=== PATIENT | female | born 1935 | race Caucasian/White ===

== ENCOUNTER 2016-11-16 18:18 | Observation (INO) | payer OTHER ==
--- NOTE | 2016-11-16 18:35 | EDPHY ---
H & P Stated Complaint: syncope Time Seen by Provider: 11/16/16 18:35 HPI/ROS: CHIEF COMPLAINT: Syncope HISTORY OF PRESENT ILLNESS: The patient presents to the ED after an episode of syncope. The patient reportedly has had symptoms of presyncope over the past 2 days. Her primary symptom is lightheadedness. The patient reportedly had a flu -like illness 4-5 days ago with associated mild abdominal pain, poor appetite and slight headache. The symptoms did resolve yesterday. The patient denies any pleuritic chest pain, exertional chest pain or asymmetric calf pain or swelling. She has had mild dyspnea for the past month. The patient does have a history of Graves disease which has been well controlled. The patient denies any fever, cough or congestion. The patient's symptoms are moderate in nature and worsened with movement. She has no prior history of arrhythmia. REVIEW OF SYSTEMS: A comprehensive 10 point review of systems is otherwise negative aside from elements mentioned in the history of present illness. Source: Patient Exam Limitations: No limitations - Personal History Current Tetanus/Diphtheria Vaccine: Unsure Current Tetanus Diphtheria and Acellular Pertussis (TDAP): Unsure - Medical/Surgical History Hx Asthma: No Hx Chronic Respiratory Disease: No Hx Diabetes: No Hx Cardiac Disease: No Hx Renal Disease: No Hx Cirrhosis: No Hx Alcoholism: No Hx HIV/AIDS: No Hx Splenectomy or Spleen Trauma: No Other PMH: graves disease - Social History Smoking Status: Never smoked - Physical Exam Exam: General Appearance: Alert, no distress Eyes: Pupils equal and round no pallor or injection ENT, Mouth: Mucous membranes moist Respiratory: There are no retractions, lungs are clear to auscultation Cardiovascular: Tachycardic, irregular, rate 120, 2/6 systolic ejection murmur Gastrointestinal: Abdomen is soft and nontender, no masses, bowel sounds normal Neurological: A&O, normal motor function, normal sensory exam, normal cranial nerves Skin: Warm and dry, no rashes Musculoskeletal: Neck is supple nontender Extremities: symmetrical, full range of motion Constitutional: Initial Vital Signs Temperature (C) 36.5 C 11/16/16 18:22 Heart Rate 124 H 11/16/16 18:22 Respiratory Rate 16 11/16/16 18:22 Blood Pressure 150/109 H 11/16/16 18:22 O2 Sat (%) 97 11/16/16 18:22 O2 Delivery Mode Room Air Allergies/Adverse Reactions: No Known Allergies Allergy (Unverified 11/16/16 18:24) Home Medications: Medication Instructions Recorded Methimazole [Methimazole] 2.5 mg PO DAILY 11/16/16 PROPRANOLOL HCL [PROPRANOLOL HCL] 40 mg PO DAILY PRN 11/16/16 Zolpidem Tartrate [Ambien 5MG (*)] 5 mg PO HS PRN 11/16/16 Medical Decision Making - Diagnostics EKG Interpretation: EKG: Complete interpretation has been separately recorded in the [facility] archive. Summary impression: Atrial fibrillation with rapid ventricular response, rate 128, nonspecific ST T wave changes noted Imaging Results: Imaging Impressions Chest/Thorax CTA 11/16/16 19:19 Impression: 1. No evidence of pulmonary embolic disease. 2. The nodular goiter. 3. See above report for additional findings. Results called and discussed with Manav Suh M.D. on 11/16/2016 at 20:26 ED Course/Re-evaluation: The patient presents to the ED with atrial fibrillation with rapid ventricular response. The patient has had some symptoms of dyspnea over the past several weeks. Additionally she had some flu-like symptoms. The patient was noted to have an elevated D-dimer of 1.26. The patient was taken for a stat CT angiogram of her chest which fortunately demonstrates no evidence of pulmonary embolism or pneumonia. The patient has a known multinodular goiter. The patient has been started on IV diltiazem bolus as well as an IV diltiazem drip. The patient is noted to have fairly significant hyperthyroidism in the emergency department. She has no clinical evidence of a thyroid storm a thyrotoxicosis. The patient was re-evaluated by myself at 10:30 p.m.. Her heart rate is now rate controlled at 90. Her blood pressure is normal. She continues to be in atrial fibrillation. Differential Diagnosis: Differential diagnosis considered includes atrial fibrillation with rapid ventricular response, thyrotoxicosis, pulmonary embolism, pneumonia, metabolic abnormality, myocardial infarction, heart failure Critical Care Time: Critical care time exclusive of procedures and exclusive of the PA's time was 35 minutes, performed by myself, Manav Suh MD. The patient presents to the emergency department with atrial fibrillation with rapid ventricular response an episode of syncope. The patient is noted to have hyperthyroidism. The patient was started on a diltiazem drip. The patient will require admission to a monitored bed this evening. - Data Points Laboratory Results: Laboratory Results 11/16/16 18:46 11/16/16 18:46 11/16/16 11/16/16 11/16/16 18:46 18:46 18:46 WBC RBC Hgb Hct MCV MCH MCHC RDW Plt Count MPV Neut % (Auto) Lymph % (Auto) [place] % (Auto) Eos % (Auto) Baso % (Auto) Nucleat RBC Rel Count Absolute Neuts (auto) Absolute Lymphs (auto) Absolute Monos (auto) Absolute Eos (auto) Absolute Basos (auto) Absolute Nucleated RBC Immature Gran % Seg Neutrophils % Lymphocytes % Monocytes % Eosinophils % Immature Gran # Absolute Seg Neuts Absolute Lymphocytes Absolute Monocytes Absolute Eosinophils RBC/WBC/PLT Morphology Atypical Lymphocytes Platelet Estimate Large Platelets D-Dimer 1.37 ug/mLFEU H ug/mLFEU (0.00-0.50) Sodium 138 mEq/L mEq/L (134-144) Potassium 3.5 mEq/L mEq/L (3.5-5.2) Chloride 105 mEq/L mEq/L (97-110) Carbon Dioxide 21 mEq/l L mEq/l (22-31) Anion Gap 12 mEq/L mEq/L (8-16) BUN 17 mg/dL mg/dL (7-23) Creatinine 0.7 mg/dL mg/dL (0.6-1.0) Estimated GFR > 60 Glucose 137 mg/dL H mg/dL (70-100) Calcium 9.8 mg/dL mg/dL (8.5-10.4) Troponin I Cancelled 0.018 ng/mL ng/mL (0-0.034) NT-Pro-B Natriuret Pep 1940 pg/mL H pg/mL Cancelled (0-450) TSH < 0.015 uIU/mL L uIU/mL (0.465-4.680) Free T3 8.58 pg/mL H pg/mL (2.77-5.27) Total T3 7.090 ng/mL H ng/mL (0.970-1.690) 11/16/16 18:46 WBC 5.47 10^3/uL 10^3/uL (3.80-9.50) RBC 3.89 10^6/uL L 10^6/uL (4.18-5.33) Hgb 11.8 g/dL L g/dL (12.6-16.3) Hct 35.5 % L % (38.0-47.0) MCV 91.3 fL fL (81.5-99.8) MCH 30.3 pg pg (27.9-34.1) MCHC 33.2 g/dL g/dL (32.4-36.7) RDW 12.2 % % (11.5-15.2) Plt Count 202 10^3/uL 10^3/uL (150-400) MPV 10.8 fL fL (8.7-11.7) Neut % (Auto) Not Reported Lymph % (Auto) Not Reported [place] % (Auto) Not Reported Eos % (Auto) Not Reported Baso % (Auto) Not Reported Nucleat RBC Rel Count 0.0 % % (0.0-0.2) Absolute Neuts (auto) Not Reported Absolute Lymphs (auto) Not Reported Absolute Monos (auto) Not Reported Absolute Eos (auto) Not Reported Absolute Basos (auto) Not Reported Absolute Nucleated RBC 0.00 10^3/uL 10^3/uL (0-0.01) Immature Gran % Not Reported Seg Neutrophils % 31 % % Lymphocytes % 50 % % Monocytes % 18 % % Eosinophils % 1 % % Immature Gran # Not Reported Absolute Seg Neuts 1.70 10^/uL 10^/uL (1.70-6.50) Absolute Lymphocytes 2.74 10^3/uL 10^3/uL (1.00-3.00) Absolute Monocytes 0.98 10^3/uL H 10^3/uL (0.30-0.80) Absolute Eosinophils 0.05 10^3/uL 10^3/uL (0.03-0.40) RBC/WBC/PLT Morphology NORMAL (NORMAL) Atypical Lymphocytes 1+ H Platelet Estimate ADEQUATE (ADEQ) Large Platelets PRESENT H D-Dimer Sodium Potassium Chloride Carbon Dioxide Anion Gap BUN Creatinine Estimated GFR Glucose Calcium Troponin I NT-Pro-B Natriuret Pep TSH Free T3 Total T3 Medications Given: Discontinued Medications Diltiazem HCl (Cardizem 25 Mg/5 Ml Vial) 10 mg IVP EDNOW ONE Stop: 11/16/16 20:34 Last Admin: 11/16/16 21:03 Dose: 10 mg Sodium Chloride (Ns) 1,000 mls @ 0 mls/hr IV ONCE ONE PRN Reason: Wide Open Stop: 11/16/16 18:37 Last Admin: 11/16/16 18:45 Dose: 1,000 mls Diltiazem HCl 125 mg/ Dextrose 125 mls @ 0 mls/hr IV EDNOW ONE; Titrate PRN Reason: Protocol Stop: 11/16/16 20:34 Last Admin: 11/16/16 21:03 Dose: 125 mls Departure - Departure Disposition: [facility] Acute Clinical Impression: Atrial fibrillation, Goiter with hyperthyroidism, Syncope Condition: Fair
[2016-11-16] MEDS ORDERED: NS 1,000 ML IV ONE (18:36)
[2016-11-16 18:59] LABS: ADD DIFF? YES; ADD MORPH? NO; ADD SCAN? NO; ATYPICAL LYMPHOCYTE FLAG 70 (0-99); FRAGMENT RBC FLAG 0 (0-99); HEMATOCRIT 35.5 % (38.0-47.0); HEMOGLOBIN 11.8 g/dL (12.6-16.3); LEFT SHIFT FLG 0 (0-99); LIPEMIA HEMOLYSIS FLAG 80 (0-99); MEAN CELL HEMOGLOBIN 30.3 pg (27.9-34.1); MEAN CELL HEMOGLOBIN CONCENTR. 33.2 g/dL (32.4-36.7); MEAN CELL VOLUME 91.3 fL (81.5-99.8); MEAN PLATELET VOLUME 10.8 fL (8.7-11.7); PLATELET CLUMPS FLAG 0 (0-99); PLATELET COUNT 202 10^3/uL (150-400); RED BLOOD CELL COUNT 3.89 10^6/uL (4.18-5.33); RED CELL DISTRIBUTION WIDTH 12.2 % (11.5-15.2)
[2016-11-16 19:08] LABS: ANION GAP 12 mEq/L (8-16); CARBON DIOXIDE 21 mEq/l (22-31); CHLORIDE 105 mEq/L (97-110); POTASSIUM 3.5 mEq/L (3.5-5.2); SODIUM 138 mEq/L (134-144)
[2016-11-16 19:09] LABS: CALCIUM 9.8 mg/dL (8.5-10.4); CREATININE 0.7 mg/dL (0.6-1.0); GLOMERULAR FILTRATION RATE > 60; GLUCOSE 137 mg/dL (70-100)
--- NOTE | 2016-11-16 19:10 | CPEKG ---
Heart Rate: 128 RR Interval: 469 QRSD Interval: 78 QT Interval: 308 QTC Interval: 450 QRS [place]: 9 T Wave [place]: 52 EKG Severity - ABNORMAL ECG - EKG Impression: ATRIAL FIBRILLATION, V-RATE 92-172 EKG Impression: CONSIDER POSTERIOR INFARCT EKG Impression: ST DEPRESSION, PROBABLY RATE RELATED Electronically Signed By: Philip Newman 16-Nov-2016 20:16:29
[2016-11-16 19:20] LABS: TROPONIN I 0.018 ng/mL (0-0.034)
[2016-11-16] MEDS ORDERED: IOPAMIDOL (ISOVUE 370) 100 ML BTL IV ONE (19:27)
[2016-11-16 19:41] LABS: LARGE PLATELETS PRESENT; PLATELET ESTIMATE ADEQUATE (ADEQ)
[2016-11-16] MEDS ORDERED: DILTIAZEM 125 MG in D5W 125 ML IV ONE (20:33)
[2016-11-16] MEDS ORDERED: DILTIAZEM 25 MG/5 ML VIAL IVP ONE ×2 (20:33→20:38)
[2016-11-16 22:56] LABS: ALBUMIN 4.2 g/dL (3.5-5.0); BILIRUBIN,TOTAL 0.6 mg/dL (0.1-1.4); BILIRUBIN-CONJUGATED 0.4 mg/dL (0.0-0.5); BILIRUBIN-UNCONJUGATED 0.2 mg/dL (0.0-1.1); TOTAL PROTEIN 7.9 g/dL (6.3-8.2)
[2016-11-16] MEDS ORDERED: ACETAMINOPHEN 325 MG TAB PO PRN (22:56)
[2016-11-16] MEDS ORDERED: ONDANSETRON DISINTEGRATING 4 MG TAB PO PRN (22:56)
[2016-11-16] MEDS ORDERED: ONDANSETRON 4 MG/2 ML VIAL IVP PRN (22:56)
--- NOTE | 2016-11-16 23:42 | PDGENHP ---
History and Physical - Chief Complaint dizziness, syncope - History of Present Illness Patient is an 81 year old female with Graves disease, currently on methimazole, and essential tremor who presents to the ED with complaint of dizziness and a syncopal episode. Patient states this morning she felt in her usual state of health, performed all of her he normal activities including long walk without any symptoms. This evening when she was sitting on her chair in her living room she felt a sudden onset episode of lightheadedness and dizziness. She did not feel any associated chest pain, palpitations or shortness of breath, and this episode of dizziness resolved after less than a minute. This occurred again several minutes later and then patient had what she thinks was a syncopal episode, which was unwitnessed, unclear how long her LOC was, but when she awoke she had full recognition of where she was and what had happened. She then called her daughter to describe the symptoms and her daughter came to her home and brought her to the ED for further evaluation. Of note, patient does report about 4 days ago she had flu-like symptoms with nasal congestion, sneezing, fever and decreased oral intake. These symptoms lasted about a day and by yesterday she felt entirely at her baseline. She also reports that she was diagnosed with Graves disease about 1 year ago, but over the past 3-4 months her dose of methimazole has been decreased twice, now at 2.5 mg daily due to hypothyroid symptoms. On arrival to the ED, patient was afebrile, with stable BP, but elevated heart rate. EKG shows atrial fibrillation with rapid ventricular response, without obvious ischemia. Initial labs, revealed normal CBC, BMP, but TSH was markedly low, free T3/free T4 were both elevated. Initial troponin was negative, but BNP was also elevated. CXR did not show any acute pathology. D-dimer was checked and was elevated, so CT angio of the chest was obtained. CT was negative for pulmonary embolism. She was initiated on a diltiazem drip and admitted for further management. Of note, over her ED course while on the diltiazem drip, patient developed a 3- 4 second pause, with sinus keyon cardia to the 30-40bpm range. During this episode, patient reports that she felt the same dizziness/symptoms that she experienced at home earlier in the day. History Information - Allergies/Home Medication List Allergies/Adverse Reactions: No Known Allergies Allergy (Unverified 11/16/16 18:24) Home Medications: Methimazole [Methimazole] 2.5 mg PO DAILY 11/16/16 [Last Taken 11/16/16] PROPRANOLOL HCL [PROPRANOLOL HCL] 40 mg PO DAILY PRN 11/16/16 [Last Taken ] Zolpidem Tartrate [Ambien 5MG (*)] 5 mg PO HS PRN 11/16/16 [Last Taken Unknown] I have personally reviewed and updated: family history, medical history, social history, surgical history - Past Medical History Additional medical history: Graves disease. Essential Tremor - Surgical History Additional surgical history: . tonsillectomy - Family History Additional family history: Mother: required pacemaker - Social History Smoking Status: Never smoked Alcohol Use: Rarely Drug Use: None Additional social history: Patient lives alone, is fully independent in ADLs, walks 3-4 miles regularly. Review of Systems ROS: 10pt was reviewed & negative except for what was stated in HPI & below Physical Exam Temp Pulse Resp BP Pulse Ox 36.4 C 83 16 145/69 H 93 11/16/16 22:00 11/16/16 22:00 11/16/16 22:00 11/16/16 22:00 11/16/16 22:00 Constitutional: no apparent distress, appears nourished, not in pain Eyes: PERRL, anicteric sclera, EOMI Ears, Nose, Mouth, Throat: moist mucous membranes, hearing normal, ears appear normal, no oral mucosal ulcers, other (nodular thyroid enlargement) Cardiovascular: no murmur, rub, or gallop, irregularly irregular, pulses symmetric bilaterally, No JVD, No edema Peripheral Pulses: 2+: dorsalis-pedis (R), dorsalis-pedis (L) Respiratory: no respiratory distress, no rales or rhonchi, clear to auscultation Gastrointestinal: normoactive bowel sounds, soft, non-tender abdomen, no palpable masses, No guarding, No rebound Genitourinary: no bladder fullness, no bladder tenderness Skin: warm, normal color, no rashes or abrasions, no fluctuance, no induration, No mottled Musculoskeletal: full muscle strength, no muscle tenderness, normal joint ROM, no joint effusions Neurologic: AAOx3, sensation intact bilaterally, CN II-XII Intact, No weakness, No numbness, No facial droop Psychiatric: interacting appropriately, not anxious, not encephalopathic, thought process linear Lab Data & Imaging Review 11/16/16 18:46 11/16/16 18:46 WBC 5.47 10^3/uL (3.80-9.50) 11/16/16 18:46 RBC 3.89 10^6/uL (4.18-5.33) L 11/16/16 18:46 Hgb 11.8 g/dL (12.6-16.3) L 11/16/16 18:46 Hct 35.5 % (38.0-47.0) L 11/16/16 18:46 MCV 91.3 fL (81.5-99.8) 11/16/16 18:46 MCH 30.3 pg (27.9-34.1) 11/16/16 18:46 MCHC 33.2 g/dL (32.4-36.7) 11/16/16 18:46 RDW 12.2 % (11.5-15.2) 11/16/16 18:46 Plt Count 202 10^3/uL (150-400) 11/16/16 18:46 MPV 10.8 fL (8.7-11.7) 11/16/16 18:46 Neut % (Auto) Not Reported 11/16/16 18:46 Lymph % (Auto) Not Reported 11/16/16 18:46 [place] % (Auto) Not Reported 11/16/16 18:46 Eos % (Auto) Not Reported 11/16/16 18:46 Baso % (Auto) Not Reported 11/16/16 18:46 Nucleat RBC Rel Count 0.0 % (0.0-0.2) 11/16/16 18:46 Absolute Neuts (auto) Not Reported 11/16/16 18:46 Absolute Lymphs (auto) Not Reported 11/16/16 18:46 Absolute Monos (auto) Not Reported 11/16/16 18:46 Absolute Eos (auto) Not Reported 11/16/16 18:46 Absolute Basos (auto) Not Reported 11/16/16 18:46 Absolute Nucleated RBC 0.00 10^3/uL (0-0.01) 11/16/16 18:46 Immature Gran % Not Reported 11/16/16 18:46 Seg Neutrophils % 31 % 11/16/16 18:46 Lymphocytes % 50 % 11/16/16 18:46 Monocytes % 18 % 11/16/16 18:46 Eosinophils % 1 % 11/16/16 18:46 Immature Gran # Not Reported 11/16/16 18:46 Absolute Seg Neuts 1.70 10^/uL (1.70-6.50) 11/16/16 18:46 Absolute Lymphocytes 2.74 10^3/uL (1.00-3.00) 11/16/16 18:46 Absolute Monocytes 0.98 10^3/uL (0.30-0.80) H 11/16/16 18:46 Absolute Eosinophils 0.05 10^3/uL (0.03-0.40) 11/16/16 18:46 RBC/WBC/PLT Morphology NORMAL (NORMAL) 11/16/16 18:46 Atypical Lymphocytes 1+ H 11/16/16 18:46 Platelet Estimate ADEQUATE (ADEQ) 11/16/16 18:46 Large Platelets PRESENT H 11/16/16 18:46 D-Dimer 1.37 ug/mLFEU (0.00-0.50) H 11/16/16 18:46 Sodium 138 mEq/L (134-144) 11/16/16 18:46 Potassium 3.5 mEq/L (3.5-5.2) 11/16/16 18:46 Chloride 105 mEq/L (97-110) 11/16/16 18:46 Carbon Dioxide 21 mEq/l (22-31) L 11/16/16 18:46 Anion Gap 12 mEq/L (8-16) 11/16/16 18:46 BUN 17 mg/dL (7-23) 11/16/16 18:46 Creatinine 0.7 mg/dL (0.6-1.0) 11/16/16 18:46 Estimated GFR > 60 11/16/16 18:46 Glucose 137 mg/dL (70-100) H 11/16/16 18:46 Calcium 9.8 mg/dL (8.5-10.4) 11/16/16 18:46 Total Bilirubin 0.6 mg/dL (0.1-1.4) 11/16/16 18:46 Conjugated Bilirubin 0.4 mg/dL (0.0-0.5) 11/16/16 18:46 Unconjugated Bilirubin 0.2 mg/dL (0.0-1.1) 11/16/16 18:46 AST 27 IU/L (14-46) 11/16/16 18:46 ALT 27 IU/L (9-52) 11/16/16 18:46 Alkaline Phosphatase 82 IU/L (38-126) 11/16/16 18:46 Troponin I 0.018 ng/mL (0-0.034) 11/16/16 18:46 NT-Pro-B Natriuret Pep 1940 pg/mL (0-450) H 11/16/16 18:46 Total Protein 7.9 g/dL (6.3-8.2) 11/16/16 18:46 Albumin 4.2 g/dL (3.5-5.0) 11/16/16 18:46 TSH < 0.015 uIU/mL (0.465-4.680) L 11/16/16 18:46 Free T4 2.43 ng/dL (0.59-2.19) H 11/16/16 18:46 Free T3 8.58 pg/mL (2.77-5.27) H 11/16/16 18:46 Total T3 7.090 ng/mL (0.970-1.690) H 11/16/16 18:46 Visualized and Interpreted imaging results: Yes Interpretation: CT chest: no pulmonary embolism, no pulmonary pathology; multinodular goiter Visualized and Interpreted EKG results: Yes EKG additional interpertation: Afib, no obvious st/t wave changes Assessment & Plan Assessment: Patient is an 81 year old female with known Graves disease, essential tremor who presents to the ED with complaint of episodic dizziness and a syncopal event today. ED evaluation revealed afib with rvr, as well as hyperthyroid state. Plan: # syncope Patient describes an episode of dizziness, which was shortly followed by a syncopal event. Syncope was unwitnessed, so details of LOC are not known, but patient did not fall out of her chair, there was no post-ictal confusion or incontinence. On arrival to the ED, HR was noted to be tachycardic in afib, but then patient also had an episode of bradycardia with a 3 second pause. Syncope appears likely related to arrhythmia. Will continue telemetry monitoring, check TTE, r/o ACS. # atrial fibrillation Patient denies previous history of afib. Her hypothyroid state (low TSH, high free T3/T4) may have triggered the afib. PE has been ruled out with negative CT chest. Patient was initiated on diltiazem for rate control while tachycardic, and then patient developed episodes of short pauses and symptomatic bradycardia. Suspect bradycardia is related to the diltiazem plus home beta- holly (patient had taken her propranolol earlier in the day). Will discontinue diltiazem, monitor HR and dose propranolol if needed for rate control. Also discussed systemic anticoagulation with patient, given her age and sex, CHADSVASc score is 3 and she warrants AC. Will initiate eliquis. # Graves disease, hyperthyroidism Patient states for the past 3-4 months, she has required lower dosing of methimazole. However, on today, labs show she is slightly hyperthyroid. Will increase her home methimazole dose back to 5 mg daily, continue propranolol for symptom control as above. # dispo: admit to observation status for work up of new onset Afib # gen: NPO DVT ppx: will initiate eliquis Full code
--- NOTE | 2016-11-17 00:32 | CPEKG ---
Heart Rate: 63 RR Interval: 952 P-R Interval: 152 QRSD Interval: 86 QT Interval: 416 QTC Interval: 426 P [place]: 67 QRS [place]: 10 T Wave [place]: 40 EKG Severity - ABNORMAL ECG - EKG Impression: SINUS RHYTHM EKG Impression: PACs NOTED, ONE OF WHICH CONDUCTED WITH ABERRANCY EKG Impression: LATERAL INFARCT, OLD Electronically Signed By: Nic Nieto 18-Nov-2016 08:03:29
[2016-11-17 01:40] LABS: TROPONIN I 0.035 ng/mL (0-0.034)
[2016-11-17 06:07] LABS: ADD DIFF? YES; ADD MORPH? NO; ADD SCAN? NO; ATYPICAL LYMPHOCYTE FLAG 80 (0-99); FRAGMENT RBC FLAG 0 (0-99); HEMATOCRIT 30.2 % (38.0-47.0); HEMOGLOBIN 10.1 g/dL (12.6-16.3); LEFT SHIFT FLG 0 (0-99); LIPEMIA HEMOLYSIS FLAG 80 (0-99); MEAN CELL HEMOGLOBIN 30.8 pg (27.9-34.1); MEAN CELL HEMOGLOBIN CONCENTR. 33.4 g/dL (32.4-36.7); MEAN CELL VOLUME 92.1 fL (81.5-99.8); MEAN PLATELET VOLUME 10.7 fL (8.7-11.7); PLATELET CLUMPS FLAG 0 (0-99); PLATELET COUNT 170 10^3/uL (150-400); RED BLOOD CELL COUNT 3.28 10^6/uL (4.18-5.33); RED CELL DISTRIBUTION WIDTH 12.2 % (11.5-15.2)
[2016-11-17 06:17] LABS: INR 1.17 (0.83-1.16); PROTIME(PATIENT) 14.9 SEC (12.0-15.0)
[2016-11-17 06:18] LABS: APTT 33.8 SEC (23.0-38.0)
[2016-11-17 06:44] LABS: ANION GAP 11 mEq/L (8-16); CARBON DIOXIDE 23 mEq/l (22-31); CHLORIDE 110 mEq/L (97-110); CREATININE 0.6 mg/dL (0.6-1.0); GLOMERULAR FILTRATION RATE > 60; GLUCOSE 99 mg/dL (70-100); MAGNESIUM 2.1 mg/dL (1.6-2.3); POTASSIUM 3.1 mEq/L (3.5-5.2); SODIUM 144 mEq/L (134-144)
[2016-11-17 06:55] LABS: TROPONIN I 0.039 ng/mL (0-0.034)
[2016-11-17] MEDS ORDERED: PROTOCOL POTASSIUM 1 DOSE MISC PRN (06:58)
[2016-11-17] MEDS ORDERED: PROTOCOL MAGNESIUM 1 DOSE IV PRN (06:58)
[2016-11-17 07:02] LABS: PLATELET ESTIMATE ADEQUATE (ADEQ)
[2016-11-17] MEDS ORDERED: POTASSIUM CL 20 MEQ/15 ML UDCUP PO ONE (08:37)
[2016-11-17] MEDS ORDERED: METHIMAZOLE 5 MG TAB PO SCH (09:00)
[2016-11-17] MEDS ORDERED: PROPRANOLOL HCL 40 MG TAB PO SCH (09:00)
--- NOTE | 2016-11-17 10:00 | ECHO ---
[id number] + + [address] : : [place] [address] : : [phone] + + Adult Echocardiographic Report + -------+ :Name: BUDDY VALLEJO MStudy Date: 11/17/2016 09:00 AM : : Hospital Admission Number: [id number] Locat ion: ER: :: 1935 Gender: Female Height: 64 in : :Age: 81 yrs Race: WH Weight: 129 l b : :Reason For Study: Eval LV Fx : : BSA: 1.6 mete rs2 : :History: Syncope, new onset of Atrial fibrillation, now in : :sinus rhythm : + -------+ MMode/2D Measurements \T\ Calculations IVSd: 0.84 cm LVIDd: 4.5 cm FS: 47.9 % MV Diam: 3.2 cm LVPWd: 0.86 cm LVIDs: 2.3 cm EDV(Teich): 92.9 ml ESV(Teich): 19.1 ml EF(Teich): 79.4 % Ao root diam: 3.0 cm LVOT diam: 1.9 cm ACS: 1.5 cm LVOT area: 2.8 cm2 Normal Measurement Values: + + :LVIDd (3.5-5.7cm) IVSd (0.6-1.1cm) LVPWd (0.6-1.1cm) Aortic Root (2.0-3.7cm)Left Atrium (1.5-4.0cm): :LV Vol(d) (76-115ml) LV Vol(s) (29-48ml) Ejec Fraction (50-65%)PV Vimal (0.6- 1.2m/s) TV Vimal (0.4-1.0m/s) : :MV E Vimal (0.8-1.0m/s)MV A Vimal (0.3-1.0m/s)LVOT Vimal (0.7-1.2m/s) Asc Ao Vimal ( 0.9-1.8m/s) : + + Doppler Measurements \T\ Calculations MV E max vimal: MV V2 max: Ao V2 max: AI max vimal: 97.5 cm/sec 170.0 cm/sec 167.0 cm/sec 439.7 cm/sec MV A max vimal: MV max PG: Ao max PG: AI max P.1 cm/sec 11.6 mmHg 11.2 mmHg 77.4 mmHg MV E/A: 1.2 MV V2 mean: Ao mean PG: AI dec slope: 101.0 cm/sec 6.0 mmHg MV mean PG: Ao V2 mean: 253.0 cm/sec2 5.0 mmHg 114.0 cm/sec AI P1/2t: MV V2 VTI: 49.0 cm Ao V2 VTI: 36.6 cm509.0 msec MV area (1 diam): ABIGAIL(I,D): 2.5 cm2 8.0 cm2 ABIGAIL(V,D): 2.2 cm2 MVA(VTI): 1.9 cm2 MV Flow area (1diam): 8.0 cm2 LV V1 max: MR max vimal: MR(RF 1 diam): SV(MV 1 diam): 132.0 cm/sec 643.5 cm/sec 8.6 % 394.1 ml LV V1 max PG: MR max PG: SI(MV 1 diam): 7.0 mmHg 165.6 mmHg LV V1 mean P.7 ml/m2 4.0 mmHg SV(LVOT): 91.3 ml LV V1 mean: 88.0 cm/sec LV V1 VTI: 32.2 cm PA V2 max: TR max vimal: RF(MV,Ao)(1 diam): 103.0 cm/sec 335.0 cm/sec 0.34 PA max PG: TR max PG: RF(MV,LVOT) 4.2 mmHg 44.9 mmHg (1diam): 0.77 RAP systole: 5.0 mmHg RVSP(TR): 49.9 mmHg Left Ventricle The left ventricle is normal in size. There is normal left ventricular wall thickness. The left ventricular ejection fraction is normal. There is Doppler evidence for diastolic dysfunction. Ejection Fraction = 79%. The left ventricular wall motion is normal. Right Ventricle The right ventricle is normal in size and function. Atria The left atrium is mildly dilated. Right atrial size is normal. Mitral Valve The mitral valve is normal. There is no mitral valve stenosis. There is mild mitral regurgitation. Tricuspid Valve There is mild tricuspid regurgitation. Right ventricular systolic pressure is 50mmHg. There is Doppler evidence for mild to moderate pulmonary hypertension. Aortic Valve There is mild aortic valve calcification. There is no aortic stenosis. Mild to moderate aortic regurgitation. Pulmonic Valve The pulmonic valve is normal in structure and function. There is no pulmonic valvular regurgitation. Great Vessels The aortic root is normal size. Pericardium/Pleural There is no pericardial effusion. Conclusion A complete two-dimensional transthoracic echocardiogram was performed (2D, M-mode, Doppler and color flow Doppler). The left ventricular ejection fraction is normal. There is Doppler evidence for diastolic dysfunction. Ejection Fraction = 79%. The left ventricular wall motion is normal. The right ventricle is normal in size and function. The left atrium is mildly dilated. There is mild mitral regurgitation. There is mild tricuspid regurgitation. Right ventricular systolic pressure is 50mmHg. There is Doppler evidence for mild to moderate pulmonary hypertension. There is mild aortic valve calcification. Mild to moderate aortic regurgitation. There is no pericardial effusion. Final Reading Physician: Sherrie Slater signed on 11/17/2016 09:58 AM Ordering Physician: Daphne Mccracken Performed By: Tim Avila, SHERMANCS
[2016-11-17 11:30] VITALS: BP 135/71; PULSE 63; RESP 18; TEMP 97.9; O2SAT 92
--- NOTE | 2016-11-17 12:25 | CPEKG ---
Heart Rate: 66 RR Interval: 909 P-R Interval: 140 QRSD Interval: 84 QT Interval: 432 QTC Interval: 453 P [place]: 58 QRS [place]: 2 T Wave [place]: 33 EKG Severity - BORDERLINE ECG - EKG Impression: SINUS RHYTHM EKG Impression: ATRIAL PREMATURE COMPLEX EKG Impression: LVH BY VOLTAGE Electronically Signed By: Jose Juan Avila 17-Nov-2016 12:46:18
--- NOTE | 2016-11-17 13:24 | GCON ---
[f rep st] CONSULTATION REASON FOR CONSULTATION: I have been asked to see her for rapid atrial fibrillation. HISTORY OF PRESENT ILLNESS: The patient had a syncopal event, was at home. She is a woman who has an essential tremor and takes Inderal 20-40 mg p.r.n. She has only taken her Inderal 3 or 4 times s o far. When she needs to sign documents is when she will take her Inderal. She needs that to make her trem or go away. So the other day she was feeling lightheaded and woozy, and she get episodes where she just feels li ghtheaded. She felt sick on Monday. On Monday, she felt lightheaded. On Monday, she played [place] ball and then was sitting in a chair a couple of hours after taking a beta holly and she pass ed out in the chair. They called 911 and she was brought here and was found to have atrial fibrilla tion with rapid ventricular response. She does not have chest pain or chest tightness. No jaw pain or arm pain. She denies any shortness of breath. She has no nausea, vomiting, diarrhea, or constipation. No fever, chills, cough. No syncope prior to this ever in her life. No headache, stiff neck, sore throat, photophobia. No trauma to the head, neck, or chest. No upper respiratory tract symptoms. No cough or sputum production. She has been taking her medications and doing reasonably well. CARDIAC RISK FACTORS: Positive for hypertension. Cardiac risk factors are negative for diabetes, hyperlipidemia, obesity, smoking history, coronary d isease, or family history of premature coronary artery disease. She has never had known coronary ar suresh disease. REVIEW OF SYSTEMS: Review of systems is positive for essential tremor. Review of systems is positi ve for Graves' disease. Otherwise, her 12-point review of systems is negative except as noted. ALLERGIES: None. MEDICATIONS: P.r.n. propranolol, Ambien, and methimazole. PAST SURGICAL HISTORY: Includes: 1. . 2. Tonsillectomy. FAMILY HISTORY: No family history of premature coronary artery disease. No history of unexplained sudden at a young age. SOCIAL HISTORY: She was born in the [facility]. She was born in the [facility] and b reathing a lot of smoke when she grew up. She lived there for many years and then [place] years after she left at age 24. 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 . She did [employer] work for them and was a technical project lead and the people who worked with her were in [place]. She does not smoke. She does not drink significant amounts of alcohol. She lives in [place], very close to [facility]. She lives by herself. She has 1 child here and 1 child, a boy, who is in [place]. That boy has had coronary disease, but that is a stepchil d. Her other child who is here is living close to her and is healthy. The patient does try to walk for exercise, do pickle ball, and gets around very well. PHYSICAL EXAMINATION: VITAL SIGNS: Blood pressure 137/70, heart rate 65, respiratory rate 12. FRANCIS NT: Pupils equal and reactive. Mucous membranes and mouth moist. NECK: Supple. CARDIOVASCULAR: S1, S2. She is in sinus rhythm. No S3 or S4. She has a soft systolic murmur. No diastolic murmu r. No S3, S4. No rubs. PULMONARY: Rhonchi bilaterally. No rales, wheezing, or dullness. ABDOME N: Soft, nontender, without masses. EXTREMITIES: No edema, inflammation, or ulceration. CVA, no tenderness. SKIN: Age-related changes and some ecchymoses on the face. NEUROLOGIC: 2-12 are gerry sly normal. Motor: She does have a tremor present. Sensory is grossly intact. PSYCH: No obvious anxiety or depression. HOSPITAL COURSE: 1. Syncope. 2. Atrial fibrillation with rapid ventricular response. The patient has been in the hospital now. She has converted to sinus rhythm. When she came to the emergency room she had an elevated heart rate with atrial fibrillation and rapid ventricular respons e, and she was given a diltiazem drip and she had a 3-second pause and bradycardia down to the 30s a nd 40s, but she was asymptomatic in the sense of no syncope. Her symptoms in the hospital were only when she was getting a diltiazem drip. She has had no symptoms since then and she did not have syn cope when she had the 4-second pause. She has had no chest pain. Her chest x-ray was negative. She had a D-dimer which was elevated, so CT chest was done that was negative for pulmonary embolism. At this point in time, I have talked to her and her daughter and we do not know the cause of her syn cope. Bradyarrhythmias are certainly the highest on my possibility list, and we will do a Holter mo nitor for 48 hours, then I will see her in 10 days in the office. She knows that we have not documented off medication any bradyarrhythmias, and when she had her paus e, she did not report to me any symptoms of near syncope, and she has had no syncope in the hospital . She is not going to be taking beta blockers or rate control medications unless she has to take somet olivia for her tremor, and then she will try a lower dose. She will be very careful about what happen s to her and changing positions, etc. I have told her very specifically she is at risk of having repeat syncope, so she has to be careful, and she will watch things very carefully and her daughter will be involved and watch her very caref ully as well. If she has syncope, she needs to call 911 or return to the hospital. If we need to, we will use the LINQ monitor, but perhaps we can find significant bradyarrhythmias without having to resort to a LINQ. She has no symptoms to suggest coronary artery disease, and as an outpatient I will do a nuclear str ess test and see how she performs and make sure that coronary artery disease is not playing a role h ere. She has hypertension and is going to watch that and if needed she will start a medication for it, bu t she is not being discharged on medication. For atrial fibrillation with a rapid ventricular response, I have talked to her daughter and her ext ensively about using full anticoagulation versus aspirin and the risks and benefits of both, and the y want to take full anticoagulation, which is what I would recommend for them completely. She had Graves' disease and her T3 and T4 are elevated, and this is something that will have to be w atched, and she is going to call her sales attendant building materials, Dr. Drake, who knows her well and figure out wha t he recommends be done with that. She did have an echocardiographic study done in the hospital. Her ejection fraction is 59%. She figueroa s pulmonary hypertension with a pulmonary artery pressure of 50. She has mild mitral regurg and tri cuspid regurg. She has diastolic dysfunction. She has moderate aortic regurgitation. All her questions have been answered and she will follow up shortly after the monitor. All their questions have been answered. They want no other testing or change of medicines or invasi ve procedures at this time. /[id number]/MODL
--- NOTE | 2016-11-17 13:24 | GDS ---
[f rep st] DISCHARGE SUMMARY DISCHARGE DIAGNOSES: 1. Syncope. 2. Paroxysmal atrial fibrillation. Back in sinus rhythm. 3. Graves disease. 4. Indeterminate troponins. CONSULTANTS: Rey Harrison MD, [facility]. HOSPITAL COURSE AND STAY BY PROBLEM: 1. Syncope: The patient presented to the hospital on 11/16/2016 after she reported dizziness and a syncopal episode. She was monitored on telemetry where she went back into sinus rhythm. During th e ED course, she was placed on a diltiazem drip where she developed a 3-4 second pause as well as so me sinus bradycardia in the 30-40 beat per minute range. On day of discharge, the patient is chest pain-free and is now in normal sinus rhythm. I discussed the case with Dr. Rey Harrison who recom mended starting her on Eliquis with close outpatient followup with him in his clinic for outpatient stress testing and Holter monitoring. 2. Graves disease: Thyroid studies were done during this hospital stay where her TSH was suppresse d at less than 0.015 with elevated free T4 of 2.4, elevated T3 at 8.5, and a total T3 of 7.090. I d iscussed this with her consumer loan processor, Dr. Drake, who agrees with increasing her methimazole to 5 mg daily. PHYSICAL EXAM: VITAL SIGNS: On day of discharge, blood pressure 135/71, pulse 63, respiratory rate 18, O2 saturation 92% on room air. Temperature afebrile. GENERAL: No acute distress. Well appea ring. CURRENT LABS AND STUDIES: Echocardiogram done 11/16/2016, ejection fraction 79%. Right ventricular systolic pressure was elevated at 50 mmHg with mild to moderate pulmonary hyperten carmina. Please refer to report for full details. CT angio of the chest done on admission showed no e vidence for pulmonary embolic disease. There is nodular goiter. DISCHARGE MEDICATIONS: Please refer to discharge medication reconciliation in [facility] for details. Below is a preliminary list. New medications on hospital discharge, Eliquis 2.5 mg p.o. twice daily, Tapazole was increased to 5 mg daily. All other home medications are continued as usual dosages. DISCHARGE INSTRUCTIONS: The patient will be discharged from the hospital where she was instructed t o follow up with Dr. Drake, her consumer loan processor, as well as Dr. Harrison as instructed for Holter monito r placement and further stress testing. /[id number]/MODL
== END 2016-11-17 14:35 | disposition home or self-care (01) ==
LOC: F2W 11-17 09:26
PROVIDERS: ADMIT Internal Medicine; ATTEND Family Medicine
DX: R55 Syncope and collapse (principal); I48.0 Paroxysmal atrial fibrillation; I10 Essential (primary) hypertension; E05.00 Thyrotoxicosis with diffuse goiter without thyrotoxic crisis or storm
CPT/HCPCS: 71275; 93005; 93306; 96361; 96374; 96375; 99291; G0378; Q9967; 84480-90; 84481-90

== ENCOUNTER 2016-12-23 11:16 | Emergency (ER) | payer OTHER ==
--- NOTE | 2016-12-23 12:29 | EDPHY ---
H & P Smoking Status: Never smoked Time Seen by Provider: 12/23/16 12:15 HPI/ROS: CHIEF COMPLAINT: Epistaxis, on Coumadin HISTORY OF PRESENT ILLNESS: 81-year-old female history of atrial fibrillation, started on Coumadin 5 days ago, complaining of paroxysmal epistaxis for the past 3 days. No dizziness. Current episode this morning was not stopping after digital pressure. No headache. She is due to have her INR checked today anyway at [facility]. Patient requests that we check her TSH, T3, T4 noting that she has an upcoming appointment with Dr. Colt Drkae and is scheduled to have these obtained on outpatient basis next week anyway. PHYSICAL EXAM (Prior to examination, patient consented to physical exam, hands were washed and my usual and customary physical exam procedures followed) 1) GENERAL: Well-developed, well-nourished, alert and oriented. Appears to be in no acute distress. 2) HEAD: Normocephalic 3) HEENT: sclera anicteric . Dried blood right nostril. Left side active bleeding Kiesselbach's plexus. 4) LUNGS: Breathing comfortably. (Dutch Chung) Constitutional: Initial Vital Signs Heart Rate 79 12/23/16 11:20 Respiratory Rate 18 12/23/16 11:20 Blood Pressure 183/79 H 12/23/16 11:20 O2 Sat (%) 97 12/23/16 11:20 O2 Delivery Mode Room Air Allergies/Adverse Reactions: No Known Allergies Allergy (Verified 12/23/16 11:27) Home Medications: Medication Instructions Recorded PROPRANOLOL HCL 40 mg PO DAILY PRN 11/16/16 Zolpidem Tartrate [Ambien 5MG (*)] 5 mg PO HS PRN 11/16/16 Methimazole [Tapazole 5MG (*)] 5 mg PO DAILY #30 tab 11/17/16 Warfarin Sodium [Coumadin 5MG (*)] 5 mg PO DAILY16 12/23/16 MDM/Departure - [facility] Procedures: Procedure: Epistaxis control. Indication: nosebleed not controlled by direct pressure. Risks, benefits, alternatives discussed with patient and consent obtained. The left nares was anesthetized with LAT and Afrin. The anterior epistaxis was identified. Patient was treated with rapid rhino packing Following the procedure the patient was re-examined and the bleeding was well controlled. The patient tolerated the procedure well. The procedure was performed by myself. At discharge the patient's nose is hemostatic. (Dutch Chung) Medications Given: Discontinued Medications Oxymetazoline HCl (Afrin Nasal [place]) 2 sprays EACHNARE EDNOW ONE Stop: 12/23/16 13:25 Last Admin: 12/23/16 13:30 Dose: Not Given Proparacaine HCl (Alcaine 0.5%) 1 drops OP EDNOW ONE Stop: 12/23/16 12:32 Last Admin: 12/23/16 12:40 Dose: Not Given Tetracaine/Epinephrine/Lidocaine (Let Gel Topical) 1 ea TP EDNOW ONE Stop: 12/23/16 12:33 Last Admin: 12/23/16 12:39 Dose: 1 ea ED Course/Re-evaluation: 1:39 p.m.: Phone consultation Dr. Colt Drake endocrinology, the patient's special delivery clerk who recommended patient have a TSH, free T3, free T4, unrelated to today's ER visit but this is scheduled to be ordered for her upcoming appoint. (Dutch Chung) The patient wasevaluatedand managed by themidlevel provider. My co- signature indicates that Ihchanel reviewed this chart and I agree with the findings and plan of care asdocumented. I am the secondary supervising physician. (Suzi Watson) - Depart Disposition: Home, Routine, Self-Care Clinical Impression: Epistaxis Condition: Good Instructions: Nosebleed (ED) Additional Instructions: Do not take todays dose of warfarin. Continue as normal tomorrow (Monday). Referrals: Claudette Pryor MD [Medical Doctor] - 12/26/16
[2016-12-23] MEDS ORDERED: PROPARACAINE 0.5% 15 ML OPHT DROP OP ONE (12:31)
[2016-12-23] MEDS ORDERED: LET GEL TOPICAL 1 EA SYR TP ONE (12:32)
[2016-12-23 12:39] LABS: % IMMATURE GRANULYOCYTES 0.7 % (0.0-1.1); ABSOLUTE IMMATURE GRANULOCYTES 0.04 10^3/uL (0.00-0.10); ADD DIFF? NO; ADD MORPH? NO; ADD SCAN? NO; ATYPICAL LYMPHOCYTE FLAG 0 (0-99); FRAGMENT RBC FLAG 0 (0-99); HEMATOCRIT 32.5 % (38.0-47.0); HEMOGLOBIN 10.7 g/dL (12.6-16.3); LEFT SHIFT FLG 0 (0-99); LIPEMIA HEMOLYSIS FLAG 80 (0-99); MEAN CELL HEMOGLOBIN 30.8 pg (27.9-34.1); MEAN CELL HEMOGLOBIN CONCENTR. 32.9 g/dL (32.4-36.7); MEAN CELL VOLUME 93.7 fL (81.5-99.8); MEAN PLATELET VOLUME 10.9 fL (8.7-11.7); PLATELET CLUMPS FLAG 0 (0-99); PLATELET COUNT 161 10^3/uL (150-400); RED BLOOD CELL COUNT 3.47 10^6/uL (4.18-5.33); RED CELL DISTRIBUTION WIDTH 13.2 % (11.5-15.2)
[2016-12-23] MEDS ORDERED: OXYMETAZOLINE 30 ML NASAL SPRAY EACHNARE ONE (13:24)
[2016-12-23 13:26] LABS: INR 4.19 (0.83-1.16); PROTIME(PATIENT) 41.2 SEC (12.0-15.0)
[2016-12-23 13:27] LABS: APTT 59.4 SEC (23.0-38.0)
[2016-12-23 15:04] VITALS: BP 149/67; PULSE 59; RESP 16; TEMP 98.4; O2SAT 95
== END 2016-12-23 15:03 | disposition home or self-care (01) ==
PROC: 2Y41X5Z Packing of Nasal Region using Packing Material (ICD-10-PCS; principal; 2016-12-23)
DX: R04.0 Epistaxis (principal); Z79.01 Long term (current) use of anticoagulants
CPT/HCPCS: 84481-90

== ENCOUNTER 2017-01-01 15:44 | Emergency (ER) | payer OTHER ==
--- NOTE | 2017-01-01 16:08 | EDPHY ---
H & P Stated Complaint: Nose bleed/on coumadin HPI/ROS: CHIEF COMPLAINT: Epistaxis HISTORY OF PRESENT ILLNESS: The patient is an 81-year-old female, on Coumadin, presenting with epistaxis that started this morning. The patient was started on Eliquis 6 weeks ago for atrial fibrillation. After 1 month she was switched to Coumadin. She was started on 5mg and then decreased to 2.5mg after INR was checked. She was seen here last week with left naris epistaxis (treated with rhinostat) and told to decrease her Coumadin to 1.25mg for 1 night and then increase back up to 2.5mg. She has taken 2.5mg for the past 4 days. This morning she developed a nose bleed in the right naris, last week it was the left naris. She was able to control the bleed for about 1.5 hours this morning and then it continued to bleed. She denies recent cold, cough, or congestion. No lightheadedness or weakness. REVIEW OF SYSTEMS: A ten point review of systems was performed and is negative with the exception of the items mentioned in the HPI. Source: Patient Exam Limitations: No limitations - Medical/Surgical History Hx Asthma: No Hx Chronic Respiratory Disease: No Hx Diabetes: No Hx Cardiac Disease: Yes Hx Renal Disease: No Hx Cirrhosis: No Hx Alcoholism: No Hx HIV/AIDS: No Hx Splenectomy or Spleen Trauma: No Other PMH: graves disease, essential temor. afib (onset 2017) - Social History Smoking Status: Never smoked Alcohol Use: None Drug Use: None Additional Social History: Retired. Lives alone in [place]. Daughter at bedside. - Physical Exam Exam: General Appearance: Alert. Vital signs reviewed. BP 142/87. Eyes: Pupils equal and round, no conjunctival injection, no discharge. Anicteric. ENT, Mouth: Diffuse bleeding sites right naris anteriorly. No blood in posterior oropharynx. Mucous membranes are moist, no oropharyngeal erythema or edema. Neck: No lymphadenopathy. Respiratory: Lungs are clear to auscultation; no wheezes, rales, or rhonchi. Cardiovascular: Regular rate and rhythm; no murmur, rub, or gallop. Skin: Warm and dry, no rashes on exposed skin, normal color. Scattered bruises on arms. Neurological: Alert and oriented. Moving all four extremities easily and equally. Psychiatric: Normal affect. Constitutional: Initial Vital Signs Temperature (C) 36.5 C 01/01/17 15:48 Heart Rate 67 01/01/17 15:48 Respiratory Rate 18 01/01/17 15:48 Blood Pressure 142/87 H 01/01/17 15:48 O2 Sat (%) 95 01/01/17 15:48 O2 Delivery Mode Room Air Allergies/Adverse Reactions: No Known Allergies Allergy (Verified 01/01/17 15:47) Home Medications: Medication Instructions Recorded PROPRANOLOL HCL 40 mg PO DAILY PRN 11/16/16 Zolpidem Tartrate [Ambien 5MG (*)] 5 mg PO HS PRN 11/16/16 Methimazole [Tapazole 5MG (*)] 5 mg PO DAILY #30 tab 11/17/16 Warfarin Sodium [Coumadin 5MG (*)] 5 mg PO DAILY16 12/23/16 Cephalexin [Keflex] 500 mg PO BID #3 cap 01/01/17 Medical Decision Making ED Course/Re-evaluation: Patient presents with second episode of epistaxis since starting Coumadin. Procedure: Epistaxis control. Indication: Nosebleed not controlled by direct pressure. Risks, benefits, alternatives discussed with patient. Consent was obtained. The right nares was cleared with Vee suction and blowing nose. Several clots were removed. The right nares was anesthetized with LET and Afrin spray. Anterior Rhinoscopy was performed with fiber optic headlamp and nasal speculum. The anterior epistaxis was identified but involved several small area. The patient was initially treated with Merocel packing. Packing not controlling the bleeding. I removed the packing. The patient continues to bleed. I repacked the naris using anterior Rhinostat. 1900: I reexamined the patient, bleeding is controlled. Packing to remain in place for three days. She will be discharged home with Keflex and was told to discontinue her Coumadin for the next two days. Coumadin clinic aware. She has FU with her scrape gatherer tomorrow. Differential Diagnosis: I considered the differential diagnosis of epistaxis including but not limited to coagulopathy (she is on coumadin with INR of 3.79 today), nasal trauma ( digital or other), sneezing/blowing nose, hypertension, inhaling an irritant. - Data Points Medications Given: Discontinued Medications Cephalexin (Keflex 500 Mg Prepack#4) 1 btl TAKEHOME EDNOW ONE PRN Reason: Protocol Stop: 01/01/17 19:08 Last Admin: 01/01/17 19:29 Dose: 1 btl Oxymetazoline HCl (Afrin Nasal [place]) 2 sprays EACHNARE EDNOW ONE Stop: 01/01/17 16:29 Last Admin: 01/01/17 16:31 Dose: 2 spray Silver Nitrate/Potassium Nitrate (Silver Nitrate Applicator) 2 each TP EDNOW ONE Stop: 01/01/17 16:58 Last Admin: 01/01/17 16:58 Dose: 2 each Tetracaine/Epinephrine/Lidocaine (Let Gel Topical) 1 ea TP EDNOW ONE Stop: 01/01/17 16:29 Last Admin: 01/01/17 16:31 Dose: 1 ea Departure - Departure Disposition: Home, Routine, Self-Care Clinical Impression: Epistaxis Condition: Good Instructions: Cephalexin (By mouth), Nosebleed (ED) Additional Instructions: Take the full course of the antibiotic Keflex as prescribed. Stop taking your Coumadin for the next two days. Followup with Dr. Harrison tomorrow as scheduled. Go to the Coumadin Clinic on Monday as scheduled. Keep packing in place until Monday, three days from now. Return to emergency department for fever, recurrence of bleeding, packing dislodgment or other concerns. Referrals: Soco Kasper MD [Primary Care Provider] - As per Instructions Rey Harrison MD [Medical Doctor] - As per Instructions Prescriptions: Cephalexin [Keflex] 500 mg PO BID #3 cap Report Scribed for: Coni Stapleton Report Scribed by: Letty Belle Date of Report: 01/01/17 Time of Report: 16:43 Physician Review and Approval Statement: 01/01/17 16:08 Portions of this note were transcribed by the bacteriologist medical. I, Dr. Coni Stapleton, personally performed the history, physical exam, and medical decision- making; and confirmed the accuracy of the information in the transcribed note.
[2017-01-01] MEDS ORDERED: OXYMETAZOLINE 30 ML NASAL SPRAY EACHNARE ONE (16:28)
[2017-01-01] MEDS ORDERED: LET GEL TOPICAL 1 EA SYR TP ONE (16:28)
[2017-01-01 16:49] LABS: INR 3.79 (0.83-1.16)
[2017-01-01] MEDS ORDERED: SILVER NITRATE APPLICATOR 1 APPL TP ONE ×2 (16:56→16:57)
[2017-01-01] MEDS ORDERED: CEPHALEXIN 500MG PREPACK#4 BTL TAKEHOME ONE (19:07)
[2017-01-01 19:30] VITALS: BP 157/83; PULSE 64; RESP 16; TEMP 98.1; O2SAT 97
== END 2017-01-01 19:30 | disposition home or self-care (01) ==
PROC: 2Y41X5Z Packing of Nasal Region using Packing Material (ICD-10-PCS; principal; 2017-01-01)
DX: R04.0 Epistaxis (principal); Z79.01 Long term (current) use of anticoagulants

== ENCOUNTER → 2018-02-21 | Outpatient (CLI) | payer OTHER ==
[~2018-02-21] MED LIST: IOPAMIDOL (ISOVUE 370) 100 ML BTL IV ONE
== END ==
LOC: FIMAGING 14:34
PROVIDERS: ATTEND Internal Medicine Cardiovascular Disease
DX: I71.2 Thoracic aortic aneurysm, without rupture (principal); I38 Endocarditis, valve unspecified; E04.2 Nontoxic multinodular goiter; I70.0 Atherosclerosis of aorta; M40.204 Unspecified kyphosis, thoracic region; M51.34 Other intervertebral disc degeneration, thoracic region
CPT/HCPCS: 71275; Q9967; 82565-PO